=== PATIENT | female | born 1945 | race Caucasian/White ===

== ENCOUNTER 2017-06-19 19:07 | Emergency (ER) | payer SELFPAY ==
[2017-06-19 21:42] VITALS: BP 145/727
== END 2017-06-19 21:42 | disposition home or self-care (01) ==
LOC: ED 19:07
DX: M54.41 Lumbago with sciatica, right side (principal); I10 Essential (primary) hypertension; M19.90 Unspecified osteoarthritis, unspecified site
CPT/HCPCS: J1885